=== PATIENT | male | born 1945 | race African-American/Black ===

== ENCOUNTER 2018-05-25 08:08 | Emergency (ER) | payer OTHER ==
[~2018-05-25] VITALS: Ht 185.4 cm; Wt 125.0 kg
[2018-05-25 09:04] LABS: HEMATOCRIT 43.6 % (39.0-50.0); HEMOGLOBIN 14.3 g/dl (14.0-18.0); IMMATURE GRANULOCYTES 0.3 % (0.0-5.0); MEAN CORPUSCULAR HGB 32.8 pG CALC (26.0-32.0); MEAN CORPUSCULAR HGB CONC 32.8 g/L CALC (32.0-36.0); NEUT# 3.25 thou/uL (1.82-7.42); RED BLOOD COUNT 4.36 mill/uL (4.70-6.10); RED CELL DISTRI WIDTH 13.2 % (11.5-15.5)
[2018-05-25] MEDS ORDERED: LIPITOR20 MG PO (09:17)
[2018-05-25] MEDS ORDERED: ASPIRIN LOW81 M1 PO (09:17)
[2018-05-25] MEDS ORDERED: LOSARTAN/HCT1 TA2 PO (09:18)
[2018-05-25] MEDS ORDERED: CLONIDINE0.1 MG PO (09:19)
[2018-05-25 09:28] LABS: ALKALINE PHOSPHATASE 49 u/l (38-126); ANION GAP 10 (6-22 (CALC)); BILIRUBIN, TOTAL 0.7 mg/dL (0.0-1.4); BUN 21 mg/dL (8-23); BUN/CREATININE RATIO 21 (12-20 (CALC)); CARBON DIOXIDE 29 mmol/l (22-30); CHLORIDE 106 mmol/l (95-108); GFR > 60 ML/MIN (>=60 (CALC)); GFR FOR AFR.AMER. > 60 ML/MIN (>=60 (CALC)); LIPASE 199 u/l (23-300); POTASSIUM 4.3 mmol/l (3.5-5.1); SGOT/AST 42 u/l (19-48); SODIUM 140 mmol/l (137-146); TOTAL PROTEIN 7.3 g/dL (6.3-8.2)
[2018-05-25 10:34] LABS: URINE BILIRUBIN - DIPSTICK NEGATIVE (NEGATIVE); URINE BLOOD DIPSTICK TRACE-LYSED (NEGATIVE); URINE COLOR YELLOW; URINE GLUCOSE - DIPSTICK NEGATIVE (NEGATIVE); URINE KETONE NEGATIVE (NEGATIVE); URINE LEUK ESTERASE NEGATIVE (NEGATIVE); URINE NITRITE - DIPSTICK NEGATIVE (Negative); URINE PROTEIN - DIPSTICK NEGATIVE (NEG-TRACE); URINE SPECIFIC GRAVITY 1.025; URINE UROBILINOGEN - DIPSTICK 0.2 E.U./dL (0.2)
[2018-05-25 10:44] LABS: URINE CLARITY CLEAR
[2018-05-25 12:16] VITALS: BP 159/79
== END 2018-05-25 12:16 | disposition home or self-care (01) | DRG 552 ==
LOC: ED 08:08
PROVIDERS: Family Medicine
DX: S16.1XXA Strain of muscle, fascia and tendon at neck level, initial encounter (principal); S29.012A Strain of muscle and tendon of back wall of thorax, initial encounter; R10.84 Generalized abdominal pain; S20.219A Contusion of unspecified front wall of thorax, initial encounter; V49.49XA Driver injured in collision with other motor vehicles in traffic accident, initial encounter; Y92.411 Interstate highway as the place of occurrence of the external cause
CPT/HCPCS: Q9967